=== PATIENT | female | born 1955 | race Caucasian/White ===

== ENCOUNTER 2018-07-24 06:33 | Day surgery (SDC) | payer OTHER ==
[2018-07-20 13:45] VITALS: BMI 33.7
[2018-07-24] MEDS ORDERED: Propofol 10 mg/ml Inj (20 ML) ONE (07:28)
[2018-07-24] MEDS ORDERED: Succinylcholine Chloride 20 mg/ml Syr (5 ml) IV ONE (07:30)
[2018-07-24] MEDS ORDERED: Clindamycin 600mg/50ml NS 600 MG/50 ML BAG IVPB ONE (07:43)
[2018-07-24] MEDS ORDERED: Midazolam 2 MG/2 ML VIAL ONE (07:44)
[2018-07-24] MEDS ORDERED: HYDROmorphone 0.5 mg/0.5 ml ISec IVP PRN (08:37)
[2018-07-24] MEDS ORDERED: Lactated Ringer's 1,000 ML IV SCH (08:45)
[2018-07-24] MEDS ORDERED: HYDROmorphone 0.5 mg/0.5 ml ISec ONE (08:53)
[2018-07-24 10:24] VITALS: RESP 15; O2SAT 98
[2018-07-24 11:45] VITALS: BP 133/78; PULSE 65; TEMP 97.6
--- NOTE | 2018-07-24 19:52 | OP ---
Copied To: Megan Hatch MD Attending MD: Megan Hatch MD PROCEDURE DATE: 07/24/2018 PREOPERATIVE DIAGNOSIS: Endometrial hyperplasia, rule out endometrial cancer. POSTOPERATIVE DIAGNOSIS: Submucosal myoma. FINDINGS: A 1 cm right uterine wall myoma, atrophic endometrium, normal endocervical canal. SURGEON: Dr. Megan Hatch MD. ANESTHESIA: General. ESTIMATED BLOOD LOSS: Less than 1 mL. COMPLICATIONS: Nil. DESCRIPTION OF PROCEDURE: After the risks, benefits and alternatives of the planned procedures including but not limited to infection, hemorrhage, deep venous thrombosis, atelectasis, pneumonia, pulmonary embolism, uterine perforation, damage to the bladder, damage to the ureter, renal insufficiency, renal failure, wound infection, wound dehiscence, incisional hernia, keloid formation, damage to the large and small intestines, damage to the inferior vena cava and the aorta requiring extensive repair, anesthesia complications, electrolyte imbalance, possibility of , fluid overload, cerebral edema and embolism, and other complications that were discussed, but are not listed above have been explained to the patient and all her questions answered. Informed consent was obtained. The patient was taken to the operating room in a stable condition. Under suitable level of general anesthesia, she was prepped and draped in a sterile fashion after having been placed in a dorsal lithotomy position. Bladder was emptied by straight catheterization. Examination under anesthesia revealed a normal sized uterus anteverted with no adnexal masses. A weighted speculum was inserted into the vagina. The anterior lip of the cervix was grasped using a single tooth tenaculum. The endocervical curettage was performed and scant tissue was obtained. Uterus was sounded to 5 cm. The cervix was dilated with a #16 Hanks dilator. The hysteroscope was inserted into the uterus using a MyoSure device. A 1 cm left uterine wall myoma was resected up to the level of the endometrium. The hysteroscope was then removed and endometrial curettage was performed. Scant tissue was obtained. Instruments were removed from the vagina. There was good hemostasis. The patient was then transferred to the recovery room in a stable condition. Pad and instrument counts are correct x2. There were no complications. Megan Hatch MD [facility] # [id number]
== END 2018-07-24 11:06 | disposition home or self-care (01) ==
LOC: C.SDS 06:33
PROVIDERS: ATTEND Obstetrics & Gynecology Reproductive Endocrinology
DX: D25.9 Leiomyoma of uterus, unspecified (principal); N84.0 Polyp of corpus uteri
CPT/HCPCS: 36415; 58561; 86850; 86900; 88305; J1170; J2001; J2250; J2704